=== PATIENT | female | born 1945 | race Caucasian/White ===

== ENCOUNTER 2016-09-19 | Outpatient (CLI) | payer MEDICARE, BC | END 2016-09-19 19:50 | disposition short-term general hospital (02) | DX: R06.00 Dyspnea, unspecified (principal) ==

== ENCOUNTER 2024-04-23 10:26 | Outpatient (CLI) | payer MEDICARE, BC | END 2024-04-23 23:59 | disposition EMS.NT | LOC: EMS 10:26 | DX: S00.11XA Contusion of right eyelid and periocular area, initial encounter (principal); W18.39XA Other fall on same level, initial encounter; Y92.513 Shop (commercial) as the place of occurrence of the external cause; R29.6 Repeated falls; R26.81 Unsteadiness on feet ==